=== PATIENT | female | born 1970 | race Caucasian/White ===

== ENCOUNTER 2022-12-23 11:10 | Outpatient (AMB) | payer OTHER, SELFPAY ==
[2022-12-23 13:08] VITALS: BP 118/70; PULSE 60; TEMP 36.4; O2SAT 99; BMI 24.3
--- NOTE | 2022-12-23 13:08 | AM.OFFWIN_ITS ---
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 she recently went to a [place] and rash has worsened since the she states it is very itchy and all over body. 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 Patient is reporting a rash all over the body. Predominant symptoms are itchiness. Rash started about a week ago. Initially she had a bee sting with a large rash on the antecubital fossa. Subsequently patient went swimming. She now has a rash all over her body. PFSH Social History Patient Tobacco Use Status: Former Tobacco user Physical Exam Vital Signs: Last Vital Signs Temp 97.6 F 12/23/22 13:08 Pulse 60 12/23/22 13:08 BP 118/70 12/23/22 13:08 Pulse Ox 99 12/23/22 13:08 Oxygen Delivery Method Room Air 12/23/22 13:08 BMI result Body Mass Index 24.3 Skin Other: Maculopapular rash with predominance in the back and in the chest area. No vesicles or pustules. Assessment & Plan Assessment & Plan (1) Rash: Code(s): R21 - Rash and other nonspecific skin eruption Plan: Tapering dose of prednisone. If symptoms do not improve to follow-up here. Coding Level of Care Code Est Pt Level 3 (43081) Diagnoses Rash R21
== END 2022-12-23 14:09 | disposition home or self-care (01) ==
PROVIDERS: PCP Internal Medicine; Visit Provider Internal Medicine
DX: R21 Rash and other nonspecific skin eruption (principal)
CPT/HCPCS: 99213